=== PATIENT | female | born 1975 | race Asian ===

== ENCOUNTER 2023-01-23 02:58 | Inpatient (IN) | payer MEDICAID ==
[~2023-01-23] VITALS: Ht 172.7 cm; Wt 77.2 kg
[2023-01-23 03:37] LABS: Basophils # (auto) 0 10 ^3/uL (0-0.2); Basophils % (auto) 0.5 % (0.0-2.0); Eosinophils # (auto) 0.2 10 ^3/uL (0-0.8); Eosinophils % (auto) 2.8 % (0.0-7.0); Hematocrit 37.4 % (36.0-46.0); Hemoglobin 12.5 g/dL (12.2-16.2); Lymphocytes # (auto) 1.9 10 ^3/uL (0.4-5.4); Lymphocytes % (auto) 27.2 % (10.0-50.0); Mean Corpuscular Hemoglobin 27.1 pg (28.0-32.0); Mean Corpuscular Hgb Conc. 33.5 g/dL (32.0-36.0); Mean Corpuscular Volume 80.8 fL (80.0-100.0); Monocytes # (auto) 0.6 10 ^3/uL (0-1.3); Monocytes % (auto) 8.7 % (0.0-12.0); Neutrophils # (auto) 4.2 10 ^3/uL (1.6-8.6); Neutrophils % (auto) 60.8 % (37.0-80.0); Nucleated Red Blood Cells % 0.1 %; Red Blood Cells 4.63 10^6/uL (4.0-5.20); Red Cell Distribution Width 14.2 % (11.8-14.3)
[2023-01-23 03:53] LABS: Albumin 3.4 g/dL (3.4-5.0); BUN/Creatinine Ratio 12.5 (10.0-20.0); Calcium 8.4 mg/dL (8.5-10.1); Potassium 3.6 mmol/L (3.5-5.1)
[2023-01-23 03:55] LABS: Bilirubin, Total 0.6 mg/dL (0.2-1.0); Total Protein 7.5 g/dL (6.4-8.2)
[2023-01-23] MEDS ORDERED: ONDANSETRON HCL 4 MG/2 ML VIAL IV ONE (05:00)
[2023-01-23 07:51] LABS: Urine Bacteria FEW /hpf (None Seen); Urine Blood Negative /uL (Negative); Urine Mucus FEW (None Seen); Urine Specific Gravity 1.015 (1.001-1.035); Urine WBC 4 /hpf (0 - 5)
[2023-01-23] MEDS ORDERED: IOHEXOL 300 MG/ML 100ML BOTTLE IJ ONE (08:11)
[2023-01-23] MEDS ORDERED: TETANUS-DIPTH-ACEL PERTUSSIS 0.5ML SYR Tdap IM ONE (11:00)
[2023-01-23] MEDS ORDERED: ASPirin 325 MG TAB PO ONE (14:00)
[2023-01-23 15:26] LABS: Magnesium 2.3 mg/dL (1.6-2.6); Phosphorus 2.6 mg/dL (2.5-4.90)
[2023-01-23] MEDS ORDERED: ACETAMINOPHEN 325 MG TAB PO PRN (17:00)
[2023-01-23] MEDS ORDERED: CYANOCOBALAMIN (B-12) 1000 MCG/1 ML VIAL IM ONE (18:30)
[2023-01-23] MEDS ORDERED: LORazepam 2MG/ML-1ML VIAL IV PRN (18:30)
[2023-01-23] MEDS: ATORVASTATIN 20 MG TAB PO SCH (22:28)
[2023-01-24 00:17] VITALS: BP 124/77
[2023-01-24 05:00] VITALS: BP 114/61
[2023-01-24 08:06] LABS: RPR Non Reactive (Non Reactive)
[2023-01-24 09:00] VITALS: BP 109/60
[2023-01-24] MEDS: ASPirin 81 mg TAB PO SCH (10:00)
[2023-01-24] MEDS: ENOXAPARIN SOD 40 MG/0.4 ML SYRINGE SC SCH (10:00)
[2023-01-24 13:08] VITALS: BP 121/62
[2023-01-24] MEDS ORDERED: LEVO50TA7 PO (13:09)
[2023-01-24 16:57] VITALS: BP 112/67
[2023-01-24] MEDS: ATORVASTATIN 20 MG TAB PO SCH (21:49)
[2023-01-24 22:00] VITALS: BP 106/61
[2023-01-25 05:00] VITALS: BP 95/51
[2023-01-25] MEDS: LEVOTHYROXINE SODIUM 50 MCG TAB PO SCH (06:29)
[2023-01-25] MEDS: ASPirin 81 mg TAB PO SCH (08:31)
[2023-01-25] MEDS: ENOXAPARIN SOD 40 MG/0.4 ML SYRINGE SC SCH (08:32)
[2023-01-25 09:00] VITALS: BP 109/59
[2023-01-25 12:30] VITALS: BP 118/75
[2023-01-25 16:35] VITALS: BP 114/59
[2023-01-25 22:00] VITALS: BP 116/59
[2023-01-25] MEDS: ATORVASTATIN 20 MG TAB PO SCH (22:16)
[2023-01-26 05:00] VITALS: BP 107/44
[2023-01-26] MEDS: LEVOTHYROXINE SODIUM 50 MCG TAB PO SCH (06:27)
[2023-01-26 09:12] VITALS: BP 100/61
[2023-01-26] MEDS: ASPirin 81 mg TAB PO SCH (09:49)
[2023-01-26] MEDS: ENOXAPARIN SOD 40 MG/0.4 ML SYRINGE SC SCH (09:50)
[2023-01-26] MEDS ORDERED: ASPI-463 PO (12:09)
[2023-01-26] MEDS ORDERED: ATOR20TA PO (12:09)
[2023-01-26 12:33] VITALS: BP 109/71
== END 2023-01-26 15:12 | disposition home or self-care (01) | DRG 48 ==
LOC: EDBD 02:58 → ER 02:58 → EDUNIT# 02:58 → TELE 13:58 → TELE-WESTW 23:08
PROVIDERS: ADMIT Nurse Practitioner Family; ATTEND Family Medicine
PROC: 4A00X4Z Measurement of Central Nervous Electrical Activity, External Approach (ICD-10-PCS; principal; 2023-01-25)
DX: G56.00 Carpal tunnel syndrome, unspecified upper limb (principal); E87.1 Hypo-osmolality and hyponatremia; G40.209 Localization-related (focal) (partial) symptomatic epilepsy and epileptic syndromes with complex partial seizures, not intractable, without status epilepticus; E78.00 Pure hypercholesterolemia, unspecified; E03.9 Hypothyroidism, unspecified; G45.9 Transient cerebral ischemic attack, unspecified
CPT/HCPCS: 36415; 70450; 70551; 74177; 80053; 80061; 81001; 82962; 83735; 83880; 84100; 84439; 84443; 84484; 84702; 85025; 85652; 86592; 93005; 93306; 93886; 95819; 96374; 97116; 97163; 97530; G0378; J2405